=== PATIENT | male | born 1960 | race American Indian/Alaskan Native ===

== ENCOUNTER 2017-12-07 07:08 | Emergency (ER) | payer BC ==
[2017-12-07 07:24] VITALS: TEMP 97.5; BMI 42.3
[2017-12-07] MEDS ORDERED: Oxycodone/Acetaminophen 5/325 mg Tab PO STA (07:36)
--- NOTE | 2017-12-07 07:43 | ED PDOC ---
Arrival/HPI - General Chief Complaint: Back Pain Time Seen by Provider: 12/07/17 07:25 Historian: Patient - History of Present Illness Narrative History of Present Illness (Text): 12/07/17 07:37 pt p/w + ~ 4 weeks onset of lower back pain, left sided; pt states pain at times radiate down to his left upper thigh; pt states pain is severe at times ~ 10/10; pt states bending/stretching/walking at times makes the pain even worse; pt states this back pain started when he was moving some leaves around at home 4 weeks ago, wasnt heavy and felt a tightness to his left lower back; pt had seen his sports doctors and is on motrin 800mg for pain relief as well has had MRI performed as outpt and indicated ? 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 Time/Duration: > week (4 weeks) Symptom Onset: Gradual Symptom Course: Unchanged Quality: Tightness, Cramping Severity Level: 10, Severe Activities at Onset: Other (ambulating/bending/moving) Context: Standing, Walking, Exertion, Home, Work Past Medical History - Provider Review Nursing Documentation Reviewed: Yes - Travel History Have you recently traveled outside [place] w/in the past 3 mons?: No - Past History Past History: No Previous - Infectious Disease Hx of Infectious Diseases: None - Tetanus Immunization Tetanus Immunization: Unknown - Reproductive Currently Lactating: No - Cardiac Hx Cardiac Disorders: Yes Hx Hypertension: Yes - Pulmonary Hx Respiratory Disorders: No - Neurological Hx Neurological Disorder: No - HEENT Hx HEENT Disorder: No - Renal Hx Renal Disorder: No - Endocrine/Metabolic Hx Endocrine Disorders: Yes Hx Diabetes Mellitus Type 1: Yes - Hematological/Oncological Hx Blood Disorders: No - Integumentary Hx Dermatological Disorder: No - Musculoskeletal/Rheumatological Hx Musculoskeletal Disorders: Yes - Gastrointestinal Hx Gastrointestinal Disorders: No - Genitourinary/Gynecological Hx Genitourinary Disorders: No - Psychiatric Hx Psychophysiologic Disorder: No Hx Substance Use: No - Past Surgical History Past Surgical History: No Previous - Anesthesia Hx Anesthesia: No Hx Anesthesia Reactions: No Hx Malignant Hyperthermia: No - Suicidal Assessment Feels Threatened In Home Enviroment: No Family/Social History - Physician Review Nursing Documentation Reviewed: Yes Family/Social History: No Known Family HX Smoking Status: Never Smoked Hx Alcohol Use: Yes Hx Substance Use: No Hx Substance Use Treatment: No Allergies/Home Meds Allergies/Adverse Reactions: Allergies No Known Allergies Allergy (Verified 12/07/17 07:32) Home Medications: Home Meds Medication Instructions Recorded Confirmed Ibuprofen [Motrin Tab] 600 mg PO BID 12/07/17 12/07/17 Losartan/Hydrochlorothiazide 12.5 mg PO DAILY 12/07/17 12/07/17 [Losartan-Hctz 100-12.5 mg Tab] Metformin HCl [Fortamet] 500 mg PO BID 12/07/17 12/07/17 Review of Systems - Review of Systems Constitutional: Normal Eyes: Normal ENT: Normal Respiratory: Normal Cardiovascular: Normal Gastrointestinal: Normal Genitourinary Male: Normal Musculoskeletal: Back Pain Skin: Normal Neurological: Normal Endocrine: Normal Hemo/Lymphatic: Normal Psychiatric: Normal Physical Exam Vital Signs Reviewed: Yes Vital Signs Temp Pulse Resp BP Pulse Ox 12/07/17 08:23 99 H 18 165/115 H 98 12/07/17 07:23 97.5 F L 104 H 20 192/142 H 97 Temperature: Afebrile Blood Pressure: Hypertensive Pulse: Tachycardic Respiratory Rate: Normal Appearance: Positive for: Well-Appearing, Uncomfortable, Other (uncomfortable, mild distress due to pain, pt is standing in his exam room/pt states this provide him more pain relief; alert/awake, GCS = 15, oriented x 3, cooperative) Pain Distress: Mild Mental Status: Positive for: Alert and Oriented X 3 - Systems Exam Head: Present: Atraumatic, Normocephalic Pupils: Present: PERRL, Other (no nystagmus, no photophobia, sclera anicteric) Extroacular Muscles: Present: EOMI Conjunctiva: Present: Normal Ears: Present: Normal Mouth: Present: Moist Mucous Membranes, Normal Teeth, Other (uvula/tongue are midline, no exudate/lesions, intact dentitions, no dysphonia) Pharnyx: Present: Normal Nose (External): Present: Atraumatic Nose (Internal): Present: Normal Inspection Neck: Present: Normal Range of Motion, Trachea Midline, Other (intact ROM, no midline tenderness, no nuchal rigidity, no step off). No: MIDLINE TENDERNESS Respiratory/Chest: Present: Clear to Auscultation, Good Air Exchange, Other (no w/r/r, no accessory muscle use noted, no tachypenia) Cardiovascular: Present: Regular Rate and Rhythm, Normal S1, S2. No: Murmurs Abdomen: Present: Normal Bowel Sounds, Other (well nourished/obese male, no focal abd tenderness, no servin's sign, no mcburney's point tenderness, no masses/rebound/guarding/rigidity) Back: Present: Normal Inspection, Other (no step off, mild left lower paralumbar tenderness, no CVAT b/l, no ecchymosis; no gross deformities noted). No: CVA Tenderness, Midline Tenderness Upper Extremity: Present: Normal Inspection, Normal ROM, NORMAL PULSES, Neurovascularly Intact, Capillary Refill < 2s, Other (moving upper ext limbs with ease, strength 5/5 grossly intact in all limbs). No: Deformity Lower Extremity: Present: Normal Inspection, NORMAL PULSES, Normal ROM, Neurovascularly Intact, Other (+ left straight leg raising). No: Deformity Neurological: Present: GCS=15, CN II-XII Intact, Speech Normal, Other (no facial asymmetries, no slurr speech, oriented x 3, NIH stroke scale ~ 0) Skin: Present: Warm, Dry, Normal Color, Other (cap refill < 1sec, no ulcerations , no petechiae, no rashes) Psychiatric: Present: Alert, Oriented x 3 Medical Decision Making ED Course and Treatment: 12/07/17 07:40 Impression: left lower back pain/sciatica vs herniated disc? i have consider all the differential diagnosis regarding pt's chief medical complaints/clinical findings, including but are not limited to: prolonged lower back pain A/P: atrumatic back pain - pain control - observe - supportive care 12/07/17 08:16 pt felt much improved, pt states pain is now 3/10 pt is able to stand and sit with min discomfort vital signs are improved, but still elevated, pt will see his PCP pt is made aware of his medical results pt is encouraged weight loss pt is encouraged min weight bearing/avoid prolonged standing pt will f/u as directed pt will be discharged home Re-evaluation Time: 08:21 Reassessment Condition: Improved - Medication Orders Current Medication Orders: Discontinued Medications Diazepam (Valium) 5 mg PO ONCE ONE PRN Reason: Protocol Stop: 12/07/17 07:37 Last Admin: 12/07/17 08:00 Dose: 5 mg Ketorolac Tromethamine (Toradol) 30 mg IM STAT STA Stop: 12/07/17 07:37 Last Admin: 12/07/17 07:59 Dose: 30 mg MAR Pain Assessment Document 12/07/17 07:59 OCS (Rec: 12/07/17 08:00 [id number] Pain Reassessment Is this a pain reassessment? No Sleep Is patient sleeping during reassessment? No Presence of Pain Presence of Pain Yes Pain Scale Used Pain Scale Used Numeric Location Left, Right or Bilateral Left Pain Location Body Site Back Description Description Constant Intensity of Pain at present 10 Aggravating Factors ADL's IM Administration Charges Document 12/07/17 07:59 OCS (Rec: 12/07/17 08:00 OCS [id number]) Injection Site MAR Injection Site Left Deltoid Charges for Administration # of IM Administrations 1 Oxycodone/Acetaminophen (Percocet 5/325 Mg Tab) 1 tab PO STAT STA Stop: 12/07/17 07:37 Last Admin: 12/07/17 08:00 Dose: 1 tab MAR Pain Assessment Document 12/07/17 08:00 OCS (Rec: 12/07/17 08:00 [id number] Pain Reassessment Is this a pain reassessment? No Sleep Is patient sleeping during reassessment? No Presence of Pain Presence of Pain No Pain Scale Used Pain Scale Used Numeric Location Left, Right or Bilateral Left Upper or Lower Lower Pain Location Body Site Back Description Description Constant Intensity of Pain at present 10 Aggravating Factors ADL's Disposition/Present on Arrival - Present on Arrival Any Indicators Present on Arrival: No History of DVT/PE: No History of Uncontrolled Diabetes: No Urinary Catheter: No History of Decub. Ulcer: No History Surgical Site Infection Following: None - Disposition Have Diagnosis and Disposition been Completed?: Yes Diagnosis: Lower back pain, Elevated blood pressure reading Disposition: HOME/ ROUTINE Disposition Time: 08:30 Patient Plan: Discharge Condition: STABLE Discharge Instructions (ExitCare): Low Back Pain in Adults, Medicines for High Blood Pressure, Hypertension (ED) Print Language: ARGENT[place] Additional Instructions: Make sure to see your doctor in 1-2 days DRINK PLENTY OF FLUIDS take your medications as prescribed NO prolonged standing AVOID heavy lifting, when lifting, use your legs RETURN TO ED IF worse pain, cant breath, persistent vomiting, high fever >101- 102 for hours, altered behavior, slurr speech, facial changes, focal weakness ( arm/leg or both), unable to urinate, heavy/persistent bleeding, unable to walk, passing out, chest pain, or other medical emergencies Prescriptions: diaZEpam [Valium] 5 mg PO TID PRN #15 tab PRN Reason: Muscle Spasm Famotidine [Pepcid] 20 mg PO BID #30 tab Ibuprofen [Motrin] 400 mg PO QID PRN #30 tab PRN Reason: Pain, Mild (1-3) oxyCODONE/Acetaminophen [Percocet 5/325 mg Tab] 1 tab PO TID PRN #15 tab PRN Reason: Pain, Moderate (4-7) Referrals: Tita Cooper MD [Primary Care Provider] - Follow up with primary Aubrey Davidson MD [Staff Provider] - Follow up with primary Ranulfo Worthington MD [Staff Provider] - Follow up with primary Raza English MD [Staff Provider] - Follow up with primary Forms: [facility] (Amharic)
[2017-12-07 08:24] VITALS: BP 165/115; PULSE 99; RESP 18; O2SAT 98
== END 2017-12-07 08:26 | disposition home or self-care (01) ==
LOC: ED 07:08
DX: M54.5 Low back pain (principal); I10 Essential (primary) hypertension
CPT/HCPCS: 96372; 99283; J1885